=== PATIENT | female | born 2000 | race Two or more races ===

== ENCOUNTER 2023-03-08 11:22 | Emergency (ER) | payer MEDICAID ==
[~2023-03-08] VITALS: Ht 160 cm; Wt 68.1 kg
[2023-03-08] MEDS ORDERED: METR-344 PO ×2 (13:08)
[2023-03-08 13:21] VITALS: BP 120/56; PULSE 101; RESP 18; TEMP 97.8; O2SAT 100
[2023-03-08 13:24] LABS: Urine Bacteria FEW /hpf (None Seen); Urine Blood Negative /uL (Negative); Urine Clarity Clear (Clear); Urine Color Colorless (Yellow); Urine Protein, UAD Negative (Negative); Urine Specific Gravity 1.006 (1.001-1.035); Urine Urobilinogen Normal (Negative); Urine WBC 2 /hpf (0 - 5)
[2023-03-08] MEDS ORDERED: NITR-87 PO (13:34)
== END 2023-03-08 13:21 | disposition home or self-care (01) ==
LOC: ER 11:22
DX: O23.42 Unspecified infection of urinary tract in pregnancy, second trimester (principal); O20.9 Hemorrhage in early pregnancy, unspecified; O26.892 Other specified pregnancy related conditions, second trimester; R10.2 Pelvic and perineal pain; Z3A.16 16 weeks gestation of pregnancy; Z79.899 Other long term (current) drug therapy
CPT/HCPCS: 36415; 76805; 81001; 84702

== ENCOUNTER 2023-04-29 11:24 | Emergency (ER) | payer MEDICAID ==
[~2023-04-29] VITALS: Ht 157.5 cm; Wt 67.2 kg
[~2023-04-29 11:24] MED LIST: NITR-87 PO
[2023-04-29 11:44] VITALS: BP 126/86; PULSE 83; RESP 17; O2SAT 98
[2023-04-29 12:48] LABS: Urine Bacteria NONE SEEN /hpf (None Seen); Urine Blood Negative /uL (Negative); Urine Clarity HAZY (Clear); Urine Color Yellow (Yellow); Urine Protein, UAD Negative (Negative); Urine Specific Gravity 1.012 (1.001-1.035); Urine Urobilinogen Normal (Negative); Urine WBC 3 /hpf (0 - 5); Urine pH 6.5 (5.0-8.0)
[2023-04-29] MEDS ORDERED: NITR-87 PO (13:30)
== END 2023-04-29 13:56 | disposition home or self-care (01) ==
LOC: ER 11:24
DX: O20.0 Threatened abortion (principal); O23.43 Unspecified infection of urinary tract in pregnancy, third trimester; N39.0 Urinary tract infection, site not specified; Z79.899 Other long term (current) drug therapy; Z3A.23 23 weeks gestation of pregnancy
CPT/HCPCS: 36415; 76805; 76817; 81001; 84702